=== PATIENT | female | born 1985 | race Caucasian/White ===

== ENCOUNTER 2024-12-29 05:01 | Emergency (ER) | payer OTHER ==
[~2024-12-29] VITALS: Ht 165.1 cm; Wt 74.0 kg
[2024-12-29 05:16] VITALS: O2SAT 99
[2024-12-29 05:45] LABS: BASOPHILS % 0.1 % (0.0-2.0); EOSINOPHILS % 0.8 % (0.0-5.0); HEMATOCRIT. 36.2 % (36.0-48.0); HEMOGLOBIN. 12.0 g/dL (12.0-16.0); LYMPHOCYTES % 20.6 % (20.0-50.0); MEAN PLATELET VOLUME 8.1 fl (7.4-10.4); MONOCYTES % 8.8 % (2.0-8.0); NEUTROPHILS % 69.7 % (40.0-76.0); PLATELET 203 x1000/uL (130-400); RED BLOOD CELL COUNT 4.13 mill/uL (4.2-5.4); RED CELL DISTRIBUTION WIDTH 15.3 % (11.6-14.6)
[2024-12-29] MEDS: SODIUM CHLORIDE 0.9% (SEPSIS BOLUS) IV ONE (05:55)
[2024-12-29 06:02] LABS: CREATININE 0.7 mg/dL (0.6-1.0); UREA NITROGEN BLOOD 12 mg/dL (9-23)
[2024-12-29] MEDS: PIPERACILLIN/TAZO 3.375G/50ML 50 ML IV ONE (06:12)
[2024-12-29 06:17] LABS: TROPONIN I HIGH SENSITIVITY < 4 ng/L (3.0-34)
[2024-12-29 06:18] LABS: ASPARTATE AMINOTRANSFERASE 16 IU/L (<34); BILIRUBIN DIRECT 0.3 mg/dL (<=3.0); BILIRUBIN TOTAL 0.7 mg/dL (0.1-1.0); PROTEIN TOTAL 6.8 g/dL (6.0-8.3)
[2024-12-29 06:22] LABS: INR 1.0
[2024-12-29 06:26] LABS: HCG SCREEN NEGATIVE
[2024-12-29] MEDS: VANCOMYCIN 1G PREMIX 200 ML IV ONE (08:11)
[2024-12-29 08:33] LABS: CLARITY URINE CLEAR (CLEAR); COLOR URINE YELLOW (YELLOW); GLUCOSE URINE NEGATIVE (NEGATIVE); KETONES URINE 1+ (NEGATIVE); OCCULT BLOOD URINE NEGATIVE (NEGATIVE); PH URINE 6.0 (4.5-8.0); PROTEIN URINE NEGATIVE (NEGATIVE); SPECIFIC GRAVITY URINE 1.010 (1.005-1.030)
[2024-12-29 08:36] LABS: NITRITE URINE NEGATIVE (NEGATIVE)
[2024-12-29 08:37] LABS: LEUKOCYTE ESTERASE URINE NEGATIVE (NEGATIVE); UROBILINOGEN URINE 0.2 E.U./dL (0.2-1.0)
[2024-12-29 08:38] VITALS: TEMP 36.6
[2024-12-29] MEDS ORDERED: POTASSIUM CHLORIDE 20MEQ TABLET SR PO SCH (09:00)
[2024-12-29] MEDS ORDERED: ENOXAPARIN 40MG/0.4ML SYR SUBCUT SCH (09:00)
[2024-12-29] MEDS ORDERED: PANTOPRAZOLE SODIUM 40 MG/VIAL IV SCH (09:00)
[2024-12-29] MEDS ORDERED: ACETAMINOPHEN 325MG TABLET PO PRN (09:00)
[2024-12-29] MEDS ORDERED: ONDANSETRON HCL 4MG/2ML INJ IV PRN (09:00)
[2024-12-29] MEDS ORDERED: CLONIDINE 0.1MG TABLET PO PRN (09:00)
[2024-12-29] MEDS ORDERED: SODIUM CHLORIDE 0.9% 1,000 ML IV SCH (09:00)
[2024-12-29] MEDS ORDERED: NALOXONE HCL 0.4MG/ML VIAL IV PRN (09:00)
[2024-12-29] MEDS ORDERED: HYDROCODONE/ACETAMINOPHEN 5/325MG TABLET PO PRN (09:00)
[2024-12-29 09:58] VITALS: BP 93/58; PULSE 68; RESP 10; O2SAT 100
[2024-12-30 12:26] LABS: *AMPHETAMINES SCREEN URINE NEGATIVE (NEGATIVE); *BENZODIAZEPINES SCREEN URINE NEGATIVE (NEGATIVE)
[2024-12-30 12:28] LABS: *BARBITURATES SCREEN URINE NEGATIVE (NEGATIVE); *COCAINE SCREEN URINE NEGATIVE (NEGATIVE); CANNABINOID URINE SCREEN NEGATIVE (NEGATIVE); ECSTASY MDMA SCREEN URINE NEGATIVE (NEGATIVE); METHADONE URINE SCREEN NEGATIVE (NEGATIVE); OPIATES URINE SCREEN NEGATIVE (NEGATIVE); PHENCYCLIDINE URINE SCREEN NEGATIVE (NEGATIVE)
== END 2024-12-29 10:42 | disposition left against medical advice (07) ==
LOC: ER 05:01 → EDBD 05:01 → 5WST 07:28 → 8WST 07:28 → UNDOADMIN 07:28 → EDBEDREQTM 07:36 → EDBEDREQ 07:36 → ENRESERV 08:00 → CANRESERV 09:36 → ENRESERV 09:36 → ER 10:42
DX: R10.9 Unspecified abdominal pain (principal); I95.9 Hypotension, unspecified; R11.2 Nausea with vomiting, unspecified; Z79.899 Other long term (current) drug therapy; Z90.49 Acquired absence of other specified parts of digestive tract
CPT/HCPCS: 99285; 74176; 96365; 71045; 96367; 96361; 80076; 80305; 80048; 84703; 83605; 85025; 85610; 87040; 87086; 84484; 36415; 84145; 93005; 81003; J2543; J3370; J7030